=== PATIENT | male | born 1985 | race Native Hawaiian/Other Pacific Islander ===

== ENCOUNTER 2016-09-22 02:36 | Emergency (ER) | payer BC ==
[2016-09-22] MEDS ORDERED: Nitrostat 0.4 MG (ED) SL ONE ×2 (02:54→03:04)
[2016-09-22] MEDS ORDERED: Phenergan 25 MG INJ IV ONE (02:58)
[2016-09-22] MEDS ORDERED: Hydromorphone 1 mg/ml Ampule IV ONE (02:58)
[2016-09-22] MEDS ORDERED: TYLENOL 325 MG PO ONE (02:58)
[2016-09-22] MEDS ORDERED: Sodium Chloride 0.9% 1000 ML 1,000 ML IV SCH (03:00)
[2016-09-22] MEDS ORDERED: Phenergan 25 MG INJ ONE (03:04)
--- NOTE | 2016-09-22 03:04 | ERPHSYRPT ---
- History of Present Illness Time Seen by Provider: 09/22/16 02:47 Source: patient Exam Limitations: no limitations Patient Subjective Stated Complaint: "i went to [facility] today. they told me in had the flu type a. they gave me some medication to help with the coughing. i have been coughing so hard that i throw up a little bit. this is my second nose bleed today from coughing." Triage Nursing Assessment: aox3, breathing unlabored, skin hot diaphortic pink, steady gait, blood noted from bilat nares Physician History: FOR THE PAST 1.5 MONTHS PT HAS HAD A PRODUCTIVE COUGH, SINUS DRAINAGE, HEADACHES AND EARACHES WITH OCCASIONAL NOSE BLEEDS AFTER VIGOROUS COUGHING. PT WENT TO [facility] YESTERDAY AND WAS DIAGNOSED WITH INFLUENZA A AND GIVEN RX FOR AUGMENTIN AND TESSALON PERLE. PT HAD DIAPHORESIS, VOMITING AND NOSE BLEED X2 TONIGHT. PT DENIES CHEST PAIN, RASH, DYSURIA. Allergies/Adverse Reactions: No Known Drug Allergies Allergy (Unverified 09/22/16 02:38) Hx Tetanus, Diphtheria Vaccination/Date Given: (unknown) Hx Influenza Vaccination/Date Given: No Hx Pneumococcal Vaccination/Date Given: No Immunizations Up to Date: (unknown) - Review of Systems Constitutional: Fever Ears, Nose, & Throat: Ear Pain, Sinus Drainage, Epistaxis Respiratory: Cough, No Dyspnea Cardiac: No Chest Pain Abdominal/Gastrointestinal: Vomiting, No Abdominal Pain Genitourinary Symptoms: No Dysuria Skin: No Rash Neurological: Headache Endocrine: Excessive Sweating All Other Systems: Reviewed and Negative - Past Medical History Pertinent Past Medical History: No Neurological History: No Pertinent History ENT History: No Pertinent History Cardiac History: No Pertinent History Respiratory History: No Pertinent History Endocrine Medical History: No Pertinent History Musculoskeletal History: No Pertinent History GI Medical History: No Pertinent History History: No Pertinent History Psycho-Social History: No Pertinent History Male Reproductive Disorders: No Pertinent History - Past Surgical History Past Surgical History: No - Social History Smoking Status: Never smoker Drug Use: none - Nursing Vital Signs Nursing Vital Signs: Initial Vital Signs Temperature 100.3 F Temperature Source Oral Pulse Rate 95 Respiratory Rate 14 Blood Pressure [] 154/96 Pain Intensity 0 - Physical Exam General Appearance: alert, other (MODERATE MALAISE) Eye Exam: PERRL/EOMI Ears, Nose, Throat Exam: moist mucous membranes, pharyngeal erythema, other ( BILATERAL EPISTAXIS; CERUMEN OCCLUSION OF BOTH EARS.) Neck Exam: normal inspection Respiratory Exam: lungs clear Cardiovascular Exam: tachycardia Gastrointestinal/Abdomen Exam: soft, normal bowel sounds Back Exam: normal range of motion Extremity Exam: normal inspection, No pedal edema Neurologic Exam: alert, cooperative Skin Exam: warm, dry SpO2 Interpretation: normal SpO2: 99 Oxygen Delivery: Room Air - Course Nursing assessment & vital signs reviewed: Yes - Radiology Exams Chest X-ray Interpretation: Interpreted by me (MINIMAL RML INFILTRATE) Ordered Tests: Active Orders 24 hr Category Date Time Status Apply Nose Clip STAT Care 09/22/16 03:00 Active IV Insertion STAT Care 09/22/16 02:54 Active CHEST 2 VIEWS (PA AND LAT) Stat Exams 09/22/16 02:56 Taken AMYLASE Stat Lab 09/22/16 03:04 Completed BLOOD CULTURE Stat Lab 09/22/16 03:30 Received CBC W DIFF Stat Lab 09/22/16 03:04 Completed CMP Stat Lab 09/22/16 03:04 Completed CULTURE, THROAT Stat Lab 09/22/16 03:30 Received CULTURE,SPUTUM Stat Lab 09/22/16 04:10 Uncollected Erythrocyte Sedimentation Rate Stat Lab 09/22/16 03:04 Completed LIPASE Stat Lab 09/22/16 03:04 Completed MAGNESIUM Stat Lab 09/22/16 03:04 Completed Roane Screen Stat Lab 09/22/16 03:04 Completed NT PRO BNP Stat Lab 09/22/16 03:04 Completed PROTIME WITH INR Stat Lab 09/22/16 03:04 Completed PTT Stat Lab 09/22/16 03:04 Completed STREP SCREEN-BETA A Stat Lab 09/22/16 03:30 Completed UA W/ MICROSCOPIC Stat Lab 09/22/16 03:29 Completed Urine Triage Profile Stat Lab 09/22/16 03:29 Completed Respiratory Nebulizer STAT RT 09/22/16 04:10 Completed Medication Summary Generic Name Dose Route Start Last Admin Trade Name Freq PRN Reason Stop Dose Admin Guaifenesin/Codeine Phosphate 10 ml 09/22/16 06:52 Robitussin Ac Syrup Unit Dose Cup PO 10/22/16 06:51 QIDP PRN COUGH Sodium Chloride 1,000 mls @ 100 mls/hr 09/22/16 03:00 09/22/16 03:19 Sodium Chloride 0.9% 1000 Ml IV 10/22/16 02:59 100 mls/hr .Q10H ROXANNE Administration Discontinued Medications Generic Name Dose Route Start Last Admin Trade Name Cristian BREWER Reason Stop Dose Admin Acetaminophen 650 mg 09/22/16 02:58 09/22/16 03:17 Tylenol 325 Mg PO 09/22/16 02:59 650 mg STAT ONE Administration Acetaminophen Confirm 09/22/16 03:05 Tylenol 325 Mg Administered 09/22/16 03:06 Dose 650 mg .ROUTE .STK-MED ONE Albuterol Sulfate 2.5 mg 09/22/16 04:10 09/22/16 05:09 Proventil 2.5 Mg/3 Ml Neb IH 09/22/16 04:11 2.5 mg STAT ONE Administration Albuterol Sulfate Confirm 09/22/16 05:02 Proventil 2.5 Mg/3 Ml Neb Administered 09/22/16 05:03 Dose 2.5 mg IH .STK-MED ONE Hydromorphone HCl 1 mg 09/22/16 02:58 09/22/16 03:43 Hydromorphone 1 Mg/Ml Ampule IV 09/22/16 02:59 1 mg STAT ONE Administration Hydromorphone HCl Confirm 09/22/16 03:05 Hydromorphone 1 Mg/Ml Ampule Administered 09/22/16 03:06 Dose 1 mg .ROUTE .STK-MED ONE Sodium Chloride Confirm 09/22/16 03:05 Sodium Chloride 0.9% 1000 Ml Administered 09/22/16 03:06 Dose 1,000 mls @ ud .ROUTE .STK-MED ONE Ceftriaxone Sodium/Dextrose 50 mls @ 100 mls/hr 09/22/16 03:11 09/22/16 03:19 Rocephin 1 Gm-D5w 50 Ml Bag IV 09/22/16 03:40 100 mls/hr STAT ONE Administration Ceftriaxone Sodium/Dextrose Confirm 09/22/16 03:15 Rocephin 1 Gm-D5w 50 Ml Bag Administered 09/22/16 03:16 Dose 50 mls @ ud IV .STK-MED ONE Magnesium Sulfate/Dextrose 100 mls @ 200 mls/hr 09/22/16 04:04 09/22/16 04:29 Magnesium 1 Gm / 100 Ml D5w IV 09/22/16 04:33 200 mls/hr STAT ONE Administration Sodium Chloride 1,000 mls @ 999 mls/hr 09/22/16 04:03 09/22/16 04:29 Sodium Chloride 0.9% 1000 Ml IV 09/22/16 05:03 999 mls/hr .Q1H1M STA Administration Azithromycin 250 mls @ 125 mls/hr 09/22/16 04:10 09/22/16 05:33 Zithromax 500 Mg/ 250 Ml Nacl Premix IV 09/22/16 06:09 125 mls/hr STAT ONE Administration Magnesium Sulfate/Dextrose Confirm 09/22/16 04:25 Magnesium 1 Gm / 100 Ml D5w Administered 09/22/16 04:26 Dose 100 mls @ ud IV .STK-MED ONE Azithromycin Confirm 09/22/16 05:11 Zithromax 500 Mg/ 250 Ml Nacl Premix Administered 09/22/16 05:12 Dose 250 mls @ ud IV .STK-MED ONE Nitroglycerin 0.4 mg 09/22/16 02:54 09/22/16 03:17 Nitrostat 0.4 Mg (Ed) SL 09/22/16 02:55 0.4 mg STAT ONE Administration Nitroglycerin Confirm 09/22/16 03:04 Nitrostat 0.4 Mg (Ed) Administered 09/22/16 03:05 Dose 0.4 mg SL .STK-MED ONE Promethazine HCl 12.5 mg 09/22/16 02:58 09/22/16 03:18 Phenergan 25 Mg Inj IV 09/22/16 02:59 12.5 mg STAT ONE Administration Promethazine HCl Confirm 09/22/16 03:04 Phenergan 25 Mg Inj Administered 09/22/16 03:05 Dose 25 mg .ROUTE .STK-MED ONE Lab/Rad Data: Laboratory Result Diagrams 09/22/16 03:04 09/22/16 03:04 Laboratory Results 09/22/16 09/22/16 09/22/16 Range/Units 03:30 03:30 03:29 WBC (4.0-10.5) K/mm3 RBC (4.1-5.6) M/mm3 Hgb (12.5-18.0) gm/dl Hct (42-50) % MCV (78-100) fl MCH (26-32) pg MCHC (32-36) g/dl RDW (11.5-14.0) % Plt Count (150-450) K/mm3 MPV (6-9.5) fl Gran % (36.0-66.0) % Lymphocytes % (24.0-44.0) % Monocytes % (0.0-12.0) % Eosinophils % (0.00-5.0) % Basophils % (0.0-0.4) % Basophils # (0-0.4) ESR (0-15) mm/hr INR (0.8-3.0) PTT (24.1-36.1) SECONDS Sodium (136-145) mEq/L Potassium (3.5-5.1) mEq/L Chloride (98-107) mEq/L Carbon Dioxide (21-32) mEq/L Anion Gap (5-15) MEQ/L BUN (9-20) mg/dL Creatinine (0.55-1.30) mg/dl Estimated GFR ML/MIN Glucose (70-110) MG/DL Calcium (8.5-10.1) mg/dL Magnesium (1.8-2.4) mg/dL Total Bilirubin (0.2-1.0) mg/dL AST (15-37) U/L ALT (12-78) U/L Alkaline Phosphatase (46-116) U/L NT-Pro-B Natriuret Pep (0-125) pg/ml Serum Total Protein (6.4-8.2) gm/dL Albumin (3.4-5.0) g/dL Amylase (25-115) U/L Lipase (73-393) U/L Ur Collection Type Urine Color (YELLOW) Urine Appearance (CLEAR) Urine pH (5-6) Ur Specific Copen (1.005-1.025) Urine Protein (Negative) Urine Glucose (UA) (NEGATIVE) mg/dL Urine Ketones (NEGATIVE) Urine Nitrite (NEGATIVE) Urine Bilirubin (NEGATIVE) Urine Urobilinogen (0-1) mg/dL Urine WBC (Auto) (NEGATIVE) Urine RBC (Auto) (0-5) Abner/ul Urine Bacteria (NEGATIVE) /HPF Urine Mucus (NEGATIVE) /HPF Urine Opiates Level NEG. (NEGATIVE) Ur Methadone NEG. (NEGATIVE) Urine Barbiturates NEG. (NEGATIVE) Ur Phencyclidine (PCP) NEG. (NEGATIVE) Urine Amphetamine NEG. (NEGATIVE) U Benzodiazepine Level NEG. (NEGATIVE) Urine Cocaine NEG. (NEGATIVE) Urine Marijuana (THC) NEG. (NEGATIVE) Monoscreen (Negative) Streptococcus Screen NEGATIVE (Negative) Resp Infection Panel NEGATIVE (Negative) Specimen Received 09/22/16 09/22/16 09/22/16 Range/Units 03:29 03:04 03:04 WBC (4.0-10.5) K/mm3 RBC (4.1-5.6) M/mm3 Hgb (12.5-18.0) gm/dl Hct (42-50) % MCV (78-100) fl MCH (26-32) pg MCHC (32-36) g/dl RDW (11.5-14.0) % Plt Count (150-450) K/mm3 MPV (6-9.5) fl Gran % (36.0-66.0) % Lymphocytes % (24.0-44.0) % Monocytes % (0.0-12.0) % Eosinophils % (0.00-5.0) % Basophils % (0.0-0.4) % Basophils # (0-0.4) ESR (0-15) mm/hr INR 1.09 (0.8-3.0) PTT 31.3 (24.1-36.1) SECONDS Sodium (136-145) mEq/L Potassium (3.5-5.1) mEq/L Chloride (98-107) mEq/L Carbon Dioxide (21-32) mEq/L Anion Gap (5-15) MEQ/L BUN (9-20) mg/dL Creatinine (0.55-1.30) mg/dl Estimated GFR ML/MIN Glucose (70-110) MG/DL Calcium (8.5-10.1) mg/dL Magnesium (1.8-2.4) mg/dL Total Bilirubin (0.2-1.0) mg/dL AST (15-37) U/L ALT (12-78) U/L Alkaline Phosphatase (46-116) U/L NT-Pro-B Natriuret Pep (0-125) pg/ml Serum Total Protein (6.4-8.2) gm/dL Albumin (3.4-5.0) g/dL Amylase (25-115) U/L Lipase (73-393) U/L Ur Collection Type CLEAN CATCH Urine Color YELLOW (YELLOW) Urine Appearance CLEAR (CLEAR) Urine pH 6.5 (5-6) Ur Specific Copen 1.015 (1.005-1.025) Urine Protein 100 (Negative) Urine Glucose (UA) NEGATIVE (NEGATIVE) mg/dL Urine Ketones SMALL-15 (NEGATIVE) Urine Nitrite NEGATIVE (NEGATIVE) Urine Bilirubin MODERATE (NEGATIVE) Urine Urobilinogen 1 (0-1) mg/dL Urine WBC (Auto) NEGATIVE (NEGATIVE) Urine RBC (Auto) NEGATIVE (0-5) Abner/ul Urine Bacteria RARE (NEGATIVE) /HPF Urine Mucus SLIGHT (NEGATIVE) /HPF Urine Opiates Level (NEGATIVE) Ur Methadone (NEGATIVE) Urine Barbiturates (NEGATIVE) Ur Phencyclidine (PCP) (NEGATIVE) Urine Amphetamine (NEGATIVE) U Benzodiazepine Level (NEGATIVE) Urine Cocaine (NEGATIVE) Urine Marijuana (THC) (NEGATIVE) Monoscreen NEGATIVE (Negative) Streptococcus Screen (Negative) Resp Infection Panel (Negative) Specimen Received [id number] 09/22/16 09/22/16 Range/Units 03:04 03:04 WBC 7.3 (4.0-10.5) K/mm3 RBC 5.03 (4.1-5.6) M/mm3 Hgb 15.6 (12.5-18.0) gm/dl Hct 45.6 (42-50) % MCV 90.7 (78-100) fl MCH 31.0 (26-32) pg MCHC 34.2 (32-36) g/dl RDW 12.8 (11.5-14.0) % Plt Count 163 (150-450) K/mm3 MPV 11.2 H (6-9.5) fl Gran % 76.0 H (36.0-66.0) % Lymphocytes % 9.6 L (24.0-44.0) % Monocytes % 12.2 H (0.0-12.0) % Eosinophils % 1.9 (0.00-5.0) % Basophils % 0.3 (0.0-0.4) % Basophils # 0.02 (0-0.4) ESR 4 (0-15) mm/hr INR (0.8-3.0) PTT (24.1-36.1) SECONDS Sodium 136 (136-145) mEq/L Potassium 3.6 (3.5-5.1) mEq/L Chloride 98 (98-107) mEq/L Carbon Dioxide 22.5 (21-32) mEq/L Anion Gap 19.2 H (5-15) MEQ/L BUN 9 (9-20) mg/dL Creatinine 1.52 H (0.55-1.30) mg/dl Estimated GFR 58 ML/MIN Glucose 102 (70-110) MG/DL Calcium 9.0 (8.5-10.1) mg/dL Magnesium 1.5 L (1.8-2.4) mg/dL Total Bilirubin 0.5 (0.2-1.0) mg/dL AST 35 (15-37) U/L ALT 41 (12-78) U/L Alkaline Phosphatase 81 (46-116) U/L NT-Pro-B Natriuret Pep < 5.0 (0-125) pg/ml Serum Total Protein 7.7 (6.4-8.2) gm/dL Albumin 4.0 (3.4-5.0) g/dL Amylase 66 (25-115) U/L Lipase 85 (73-393) U/L Ur Collection Type Urine Color (YELLOW) Urine Appearance (CLEAR) Urine pH (5-6) Ur Specific Copen (1.005-1.025) Urine Protein (Negative) Urine Glucose (UA) (NEGATIVE) mg/dL Urine Ketones (NEGATIVE) Urine Nitrite (NEGATIVE) Urine Bilirubin (NEGATIVE) Urine Urobilinogen (0-1) mg/dL Urine WBC (Auto) (NEGATIVE) Urine RBC (Auto) (0-5) Abner/ul Urine Bacteria (NEGATIVE) /HPF Urine Mucus (NEGATIVE) /HPF Urine Opiates Level (NEGATIVE) Ur Methadone (NEGATIVE) Urine Barbiturates (NEGATIVE) Ur Phencyclidine (PCP) (NEGATIVE) Urine Amphetamine (NEGATIVE) U Benzodiazepine Level (NEGATIVE) Urine Cocaine (NEGATIVE) Urine Marijuana (THC) (NEGATIVE) Monoscreen (Negative) Streptococcus Screen (Negative) Resp Infection Panel (Negative) Specimen Received - Departure Time of Disposition: 06:53 Departure Disposition: Home Clinical Impression: PNEUMONIA, EPISTAXIS, HYPOMAGNESEMIA Condition: Fair Critical Care Time: No Referrals: SUMEET CRUZ [Primary Care Provider] - Instructions: Nosebleed, Pneumonia -- Adult Additional Instructions: FOLLOW UP WITH PRIVATE DOCTOR TOMORROW. DISCONTINUE AUGMENTIN. Prescriptions: Guaifenesin/Codeine Phosphate [Robitussin AC Syrup] 10 ml PO Q4H PRN PRN #120 ml PRN Reason: Cough Azithromycin 250 mg [Zithromax 250 MG TABLET] 250 mg PO ZPACK #6 tablet Cefdinir [Omnicef 300 mg] 300 mg PO BID #20 capsule
[2016-09-22] MEDS ORDERED: Hydromorphone 1 mg/ml Ampule ONE (03:05)
[2016-09-22] MEDS ORDERED: TYLENOL 325 MG ONE (03:05)
[2016-09-22] MEDS ORDERED: Sodium Chloride 0.9% 1000 ML 1,000 ML ONE (03:05)
[2016-09-22 03:08] LABS: BASOPHIL % 0.3 % (0.0-0.4); Eosinophil % 1.9 % (0.00-5.0); Lymphocytes % 9.6 % (24.0-44.0); Mean Cell Volume 90.7 fl (78-100); Mean Platelet Volume 11.2 fl (6-9.5); Monocytes % 12.2 % (0.0-12.0); Platelet Count 163 K/mm3 (150-450); Red Blood Count 5.03 M/mm3 (4.1-5.6); Red Cell Distribution Width 12.8 % (11.5-14.0); White Blood Count 7.3 K/mm3 (4.0-10.5)
[2016-09-22 03:11] LABS: INR 1.09 (0.8-3.0); PROTIME 12.2 SECONDS (8.83-12.87)
[2016-09-22] MEDS ORDERED: ROCEPHIN 1 Gm-D5w 50 ml Bag** 50 ML IV ONE ×2 (03:11→03:15)
[2016-09-22 03:13] LABS: PTT 31.3 SECONDS (24.1-36.1)
[2016-09-22 03:33] LABS: ALKALINE PHOSPHATASE 81 U/L (46-116); ANION GAP 19.2 MEQ/L (5-15); BILIRUBIN,TOTAL 0.5 mg/dL (0.2-1.0); BLOOD UREA NITROGEN 9 mg/dL (9-20); CHLORIDE 98 mEq/L (98-107); Carbon Dioxide 22.5 mEq/L (21-32); Glucose 102 MG/DL (70-110); LIPASE 85 U/L (73-393); MAGNESIUM 1.5 mg/dL (1.8-2.4); Potassium 3.6 mEq/L (3.5-5.1); SGOT/AST 35 U/L (15-37); SGPT/ALT 41 U/L (12-78); SODIUM 136 mEq/L (136-145); Total Protein 7.7 gm/dL (6.4-8.2)
[2016-09-22 03:35] LABS: Erythrocyte Sedimentation Rate 4 mm/hr (0-15)
[2016-09-22] MEDS ORDERED: Sodium Chloride 0.9% 1000 ML 1,000 ML IV STA (04:03)
[2016-09-22] MEDS ORDERED: Magnesium 1 Gm / 100 Ml D5W*** 100 ML IV ONE ×2 (04:04→04:25)
[2016-09-22] MEDS ORDERED: PROVENTIL 2.5 MG/3 ML NEB IH ONE ×2 (04:10→05:02)
[2016-09-22] MEDS ORDERED: Zithromax 500 MG/ 250 ML NaCl Premix 250 ML IV ONE ×2 (04:10→05:11)
[2016-09-22 04:13] LABS: Bacteria RARE /HPF (NEGATIVE); COMPLETE URINE MICROSCOPIC? YES; Collection Type CLEAN CATCH; Mucus SLIGHT /HPF (NEGATIVE); Ph 6.5 (5-6)
[2016-09-22] MEDS ORDERED: Robitussin AC Syrup Unit Dose Cup PO PRN (06:52)
[2016-09-22] MEDS ORDERED: Robitussin AC Syrup Unit Dose Cup ONE (07:00)
[2016-09-22 07:04] VITALS: O2SAT 96
[2016-09-22 07:43] VITALS: BP 135/90; PULSE 110
--- NOTE | 2016-09-22 08:43 | XRAY ---
Indication: Fever, cough, epistaxis. Comparison: None PA/lateral chest clear. Heart and mediastinal structures within normal limits. Bony thorax intact. Impression: Radiographically nonacute chest.
== END 2016-09-22 07:43 | disposition home or self-care (01) ==
LOC: ED 02:36
DX: J18.9 Pneumonia, unspecified organism (principal); R04.0 Epistaxis; E83.42 Hypomagnesemia; R11.10 Vomiting, unspecified; H61.23 Impacted cerumen, bilateral
CPT/HCPCS: 36000; 36415; 71020; 80053; 80307; 81000; 82150; 83690; 83735; 83880; 85025; 85610; 85652; 85730; 86308; 87040; 87070; 87430; 87631; 94640; 96360; 96361; 96365; 96367; 96374; 96375; 99284; J0456; J0696; J1170; J2550; J3475